=== PATIENT | female | born 1935 | race African-American/Black ===

== ENCOUNTER 2017-02-11 17:28 | Inpatient (IN) | payer MEDICARE, BC ==
[~2017-02-11] VITALS: Ht 167.6 cm; Wt 78.5 kg
[~2017-02-11 17:28] MED LIST: ASPI-1035 PO; ATOR80TA PO; CLON0.1T PO; DOCU-138 PO; ENAL20TA PO; FURO-151 PO; LORA2VIA33 PO; ZOLP5TAB2 PO
[2017-02-11] MEDS ORDERED: LORAZEPAM 1MG TABLET PO ONE (18:15)
[2017-02-11 18:31] LABS: BASOPHILS % 0.9 % (0.0-2.0); EOSINOPHILS % 2.7 % (0.0-5.0); HEMATOCRIT. 29.8 % (36.0-48.0); HEMOGLOBIN. 9.7 g/dL (12.0-16.0); LYMPHOCYTES % 10.7 % (20.0-50.0); MEAN CORPUSCULAR HEMOGLOBIN 27.2 pg (28.0-32.0); MEAN CORPUSCULAR HGB CONC 32.6 g/dL (31.0-37.0); MEAN CORPUSCULAR VOLUME 83.3 fL (81.0-99.0); MEAN PLATELET VOLUME 8.3 fl (7.4-10.4); MONOCYTES % 5.5 % (2.0-8.0); NEUTROPHILS % 80.2 % (40.0-76.0); PLATELET 181 x1000/uL (130-400); RED BLOOD CELL COUNT 3.57 mill/uL (4.2-5.4); RED CELL DISTRIBUTION WIDTH 16.3 % (11.6-14.6); WHITE BLOOD COUNT 8.6 x1000/uL (4.5-11.0)
[2017-02-11 18:35] LABS: CHLORIDE 112 mEq/L (98-107); INDEX HEMOLYSI 1 (1-3); INDEX ICTERIC 1 (1-4); INDEX LIPEMIC 1 (1-3)
[2017-02-11 18:37] LABS: ALBUMIN 3.1 g/dL (3.4-5.0); ANION GAP 14; CALCIUM 8.4 mg/dL (8.5-10.1); CARBON DIOXIDE 22 mEq/L (21-32); INR 1.1; PARTIAL THROMBOPLASTIN TIME 27.8 sec (24.0-34.0); PROTHROMBIN TIME 11.7 sec; UREA NITROGEN BLOOD 30 mg/dL (7-21)
[2017-02-11 18:41] LABS: ALANINE AMINOTRANSFERASE 22 IU/L (13-61); eGFR 41 mL/min (>60)
[2017-02-11 18:44] LABS: NT PRO B-TYPE NATRIURETIC PEP 7071 pg/mL (5-125)
[2017-02-11 18:45] LABS: TROPONIN I < 0.02 ng/mL (0.00-0.04)
[2017-02-11] MEDS ORDERED: FUROSEMIDE 40MG/4ML VIAL IVP ONE (19:30)
[2017-02-11] MEDS ORDERED: ASPIRIN 81MG TABLET PO ONE (19:45)
[2017-02-11] MEDS ORDERED: GUAIFENESIN 200MG/10ML SUGAR FREE UDC PO PRN (20:15)
[2017-02-11] MEDS ORDERED: IPRATROPIUM/ALBUTEROL 0.5-3(2.5)MG/3ML NEB INH PRN (20:15)
[2017-02-11 20:35] LABS: CLARITY URINE CLEAR (CLEAR); COLOR URINE YELLOW (YELLOW); GLUCOSE URINE NEGATIVE (NEGATIVE); KETONES URINE NEGATIVE (NEGATIVE); LEUKOCYTE ESTERASE URINE NEGATIVE (NEGATIVE); NITRITE URINE NEGATIVE (NEGATIVE); OCCULT BLOOD URINE NEGATIVE (NEGATIVE); PROTEIN URINE 2+ (NEGATIVE); SPECIFIC GRAVITY URINE 1.016 (1.005-1.030); UROBILINOGEN URINE 0.2 E.U./dL (0.2-1.0)
[2017-02-11 20:42] LABS: *AMPHETAMINES SCREEN URINE NEGATIVE (NEGATIVE); *BARBITURATES SCREEN URINE NEGATIVE (NEGATIVE); *BENZODIAZEPINES SCREEN URINE NEGATIVE (NEGATIVE); *COCAINE SCREEN URINE NEGATIVE (NEGATIVE); CANNABINOID URINE SCREEN NEGATIVE (NEGATIVE); ECSTASY MDMA SCREEN URINE NEGATIVE (NEGATIVE); METHADONE URINE SCREEN NEGATIVE (NEGATIVE); OPIATES URINE SCREEN NEGATIVE (NEGATIVE); PHENCYCLIDINE URINE SCREEN NEGATIVE (NEGATIVE)
[2017-02-11 20:55] LABS: FOLIC ACID (FOLATE) SERUM 9.5 ng/mL (>5.38)
[2017-02-11 21:04] LABS: BACTERIA URINE TRACE; RBC URINE NONE SEEN /hpf (0-2); SQUAMOUS EPITHELIAL CELL URINE FEW /lpf (RARE/1+); WBC URINE 0-2 /hpf (0-2)
[2017-02-11 21:54] LABS: CREATINE KINASE 101 IU/L (26-192); INDEX HEMOLYSI 1 (1-3); TROPONIN I < 0.02 ng/mL (0.00-0.04)
[2017-02-11] MEDS: SODIUM CHLORIDE 0.9% INJ 3ML FLUSH IVF SCH (22:00)
[2017-02-11] MEDS ORDERED: COR25 PO (22:47)
[2017-02-11] MEDS ORDERED: HYDR100T26 PO (22:47)
[2017-02-11 22:54] VITALS: BP 183/78
[2017-02-11 22:59] VITALS: BP 183/78
[2017-02-11] MEDS: CLONIDINE 0.1MG TABLET PO SCH (23:23)
[2017-02-11] MEDS: HYDRALAZINE HCL 100MG TABLET PO SCH (23:33)
[2017-02-11] MEDS: ZOLPIDEM TARTRATE 5MG TABLET PO PRN (23:33)
[2017-02-11 23:51] VITALS: BP 157/72
[2017-02-12] MEDS: ATORVASTATIN CALCIUM 40MG TABLET PO SCH ×2 (00:03→21:09)
[2017-02-12 04:00] VITALS: BP 138/78
[2017-02-12] MEDS: SODIUM CHLORIDE 0.9% INJ 3ML FLUSH IVF SCH ×3 (05:01→21:09)
[2017-02-12] MEDS: HYDRALAZINE HCL 100MG TABLET PO SCH ×3 (05:51→21:52)
[2017-02-12 06:24] LABS: BASOPHILS % 0.7 % (0.0-2.0); EOSINOPHILS % 3.2 % (0.0-5.0); HEMATOCRIT. 28.7 % (36.0-48.0); HEMOGLOBIN. 9.3 g/dL (12.0-16.0); LYMPHOCYTES % 16.9 % (20.0-50.0); MEAN CORPUSCULAR HEMOGLOBIN 26.8 pg (28.0-32.0); MEAN CORPUSCULAR HGB CONC 32.3 g/dL (31.0-37.0); MEAN PLATELET VOLUME 8.6 fl (7.4-10.4); MONOCYTES % 9.6 % (2.0-8.0); NEUTROPHILS % 69.6 % (40.0-76.0); PLATELET 175 x1000/uL (130-400); RED BLOOD CELL COUNT 3.46 mill/uL (4.2-5.4); RED CELL DISTRIBUTION WIDTH 16.3 % (11.6-14.6); WHITE BLOOD COUNT 7.5 x1000/uL (4.5-11.0)
[2017-02-12 07:11] LABS: ALANINE AMINOTRANSFERASE 15 IU/L (13-61); ALBUMIN 2.8 g/dL (3.4-5.0); ANION GAP 14; CALCIUM 8.1 mg/dL (8.5-10.1); CARBON DIOXIDE 24 mEq/L (21-32); CHLORIDE 109 mEq/L (98-107); CREATINE KINASE 86 IU/L (26-192); HDL CHOLESTEROL 48 mg/dL (40-59); INDEX HEMOLYSI 1 (1-3); INDEX ICTERIC 1 (1-4); INDEX LIPEMIC 1 (1-3); LDL CHOLESTEROL 72 mg/dL (5-100); TRIGLYCERIDE 109 mg/dL (0-150); UREA NITROGEN BLOOD 32 mg/dL (7-21); eGFR 38 mL/min (>60)
[2017-02-12 07:12] LABS: TROPONIN I < 0.02 ng/mL (0.00-0.04)
[2017-02-12 08:00] VITALS: BP 148/79
[2017-02-12] MEDS ORDERED: FUROSEMIDE 40MG/4ML VIAL IV SCH (09:00)
[2017-02-12] MEDS ORDERED: FUROSEMIDE 100MG/10ML VIAL IV SCH (09:00)
[2017-02-12] MEDS ORDERED: ASPIRIN 81MG EC TABLET PO SCH (09:00)
[2017-02-12] MEDS: CLONIDINE 0.1MG TABLET PO SCH ×2 (09:00→21:09)
[2017-02-12] MEDS: DOCUSATE SODIUM 100MG CAPSULE PO SCH (09:00)
[2017-02-12] MEDS: ENOXAPARIN 30MG/0.3ML SYR SUBCUT SCH (09:00)
[2017-02-12] MEDS: CARVEDILOL 25MG TABLET PO SCH ×2 (09:01→16:39)
[2017-02-12 12:00] VITALS: BP 137/86
[2017-02-12] MEDS: ACETAMINOPHEN 325MG TABLET PO PRN ×2 (12:05→21:52)
[2017-02-12 16:32] VITALS: BP 133/68
[2017-02-12] MEDS ORDERED: ZOLPIDEM TARTRATE 5MG TABLET PO PRN (17:00)
[2017-02-12] MEDS: LORAZEPAM 0.5MG TABLET PO PRN (19:03)
[2017-02-12 20:00] VITALS: BP 127/62
[2017-02-12] MEDS ORDERED: ATORVASTATIN CALCIUM 40MG TABLET PO SCH (21:00)
[2017-02-12] MEDS: ZOLPIDEM TARTRATE 5MG TABLET PO PRN (21:14)
[2017-02-12 23:18] LABS: CALCIUM 8.4 mg/dL (8.5-10.1)
[2017-02-13] VITALS (7 sets, daily range): BP systolic 108–162; BP diastolic 46–82
[2017-02-13] MEDS: SODIUM CHLORIDE 0.9% INJ 3ML FLUSH IVF SCH ×3 (05:31→21:43)
[2017-02-13 05:32] LABS: BASOPHILS % 0.6 % (0.0-2.0); EOSINOPHILS % 3.1 % (0.0-5.0); LYMPHOCYTES % 19.3 % (20.0-50.0); MEAN CORPUSCULAR HGB CONC 32.2 g/dL (31.0-37.0); MEAN PLATELET VOLUME 8.9 fl (7.4-10.4); PLATELET 182 x1000/uL (130-400); RED BLOOD CELL COUNT 3.69 mill/uL (4.2-5.4); RED CELL DISTRIBUTION WIDTH 16.5 % (11.6-14.6); WHITE BLOOD COUNT 7.5 x1000/uL (4.5-11.0)
[2017-02-13] MEDS: HYDRALAZINE HCL 100MG TABLET PO SCH ×3 (05:32→21:44)
[2017-02-13 06:07] LABS: CALCIUM 8.4 mg/dL (8.5-10.1)
[2017-02-13] MEDS: ACETAMINOPHEN 325MG TABLET PO PRN ×3 (07:40→21:45)
[2017-02-13] MEDS: DOCUSATE SODIUM 100MG CAPSULE PO SCH (08:15)
[2017-02-13] MEDS: CARVEDILOL 25MG TABLET PO SCH ×2 (08:15→16:14)
[2017-02-13] MEDS: ASPIRIN 81MG TABLET PO SCH (08:15)
[2017-02-13] MEDS: ENOXAPARIN 30MG/0.3ML SYR SUBCUT SCH (08:16)
[2017-02-13] MEDS: CLONIDINE 0.1MG TABLET PO SCH ×2 (08:16→20:23)
[2017-02-13] MEDS: LORAZEPAM 0.5MG TABLET PO PRN ×3 (08:16→20:23)
[2017-02-13 10:22] LABS: T4 FREE 0.96 ng/dL (0.76-1.46); THYROID STIMULATING HORMONE 0.85 uIU/mL (0.36-3.74)
[2017-02-13 16:04] LABS: CREATINE KINASE MB FRACTION 3.2 ng/mL (0.5-3.6); TROPONIN I 0.02 ng/mL (0.00-0.04)
[2017-02-13] MEDS: ATORVASTATIN CALCIUM 40MG TABLET PO SCH (20:24)
[2017-02-13] MEDS: ZOLPIDEM TARTRATE 5MG TABLET PO PRN (21:45)
[2017-02-14] VITALS (8 sets, daily range): BP systolic 120–148; BP diastolic 60–80
[2017-02-14 00:13] LABS: CREATINE KINASE MB FRACTION 2.3 ng/mL (0.5-3.6); TROPONIN I 0.02 ng/mL (0.00-0.04)
[2017-02-14] MEDS: LORAZEPAM 0.5MG TABLET PO PRN ×2 (04:41→17:20)
[2017-02-14] MEDS: SODIUM CHLORIDE 0.9% INJ 3ML FLUSH IVF SCH ×2 (05:43→14:53)
[2017-02-14] MEDS: HYDRALAZINE HCL 100MG TABLET PO SCH ×2 (05:44→14:52)
[2017-02-14] MEDS: ACETAMINOPHEN 325MG TABLET PO PRN ×2 (05:47→14:52)
[2017-02-14 05:52] LABS: BASOPHILS % 0.7 % (0.0-2.0); EOSINOPHILS % 3.7 % (0.0-5.0); HEMATOCRIT. 28.5 % (36.0-48.0); HEMOGLOBIN. 9.1 g/dL (12.0-16.0); LYMPHOCYTES % 19.1 % (20.0-50.0); MEAN CORPUSCULAR HEMOGLOBIN 26.8 pg (28.0-32.0); MEAN CORPUSCULAR VOLUME 83.7 fL (81.0-99.0); MEAN PLATELET VOLUME 8.9 fl (7.4-10.4); MONOCYTES % 9.7 % (2.0-8.0); NEUTROPHILS % 66.8 % (40.0-76.0); PLATELET 164 x1000/uL (130-400); RED BLOOD CELL COUNT 3.41 mill/uL (4.2-5.4); WHITE BLOOD COUNT 7.9 x1000/uL (4.5-11.0)
[2017-02-14 06:38] LABS: ANION GAP 13; CALCIUM 8.2 mg/dL (8.5-10.1); CARBON DIOXIDE 25 mEq/L (21-32); CHLORIDE 107 mEq/L (98-107); INDEX HEMOLYSI 1 (1-3); INDEX ICTERIC 1 (1-4); INDEX LIPEMIC 1 (1-3); UREA NITROGEN BLOOD 45 mg/dL (7-21)
[2017-02-14 06:44] LABS: CREATINE KINASE 101 IU/L (26-192); CREATINE KINASE MB FRACTION 1.9 ng/mL (0.5-3.6); TROPONIN I < 0.02 ng/mL (0.00-0.04); eGFR 33 mL/min (>60)
[2017-02-14] MEDS: DOCUSATE SODIUM 100MG CAPSULE PO SCH (08:27)
[2017-02-14] MEDS: ENOXAPARIN 30MG/0.3ML SYR SUBCUT SCH (08:27)
[2017-02-14] MEDS: ASPIRIN 81MG TABLET PO SCH (08:32)
[2017-02-14] MEDS: CLONIDINE 0.1MG TABLET PO SCH (08:32)
[2017-02-14] MEDS: CARVEDILOL 25MG TABLET PO SCH ×2 (08:32→17:20)
== END 2017-02-14 17:50 | disposition home or self-care (01) | DRG 291 ==
LOC: ER 18:05 → 8WST 19:36
PROVIDERS: ADMIT Family Medicine; ATTEND Family Medicine
DX: I13.0 Hypertensive heart and chronic kidney disease with heart failure and stage 1 through stage 4 chronic kidney disease, or unspecified chronic kidney disease (principal); I50.33 Acute on chronic diastolic (congestive) heart failure; E44.1 Mild protein-calorie malnutrition; K21.9 Gastro-esophageal reflux disease without esophagitis; D64.9 Anemia, unspecified; R07.9 Chest pain, unspecified; E78.5 Hyperlipidemia, unspecified; F03.90 Unspecified dementia, unspecified severity, without behavioral disturbance, psychotic disturbance, mood disturbance, and anxiety; I25.10 Atherosclerotic heart disease of native coronary artery without angina pectoris; I50.9 Heart failure, unspecified; J44.9 Chronic obstructive pulmonary disease, unspecified; F41.9 Anxiety disorder, unspecified; M25.512 Pain in left shoulder; N18.9 Chronic kidney disease, unspecified; G89.29 Other chronic pain; Z82.49 Family history of ischemic heart disease and other diseases of the circulatory system; Z95.810 Presence of automatic (implantable) cardiac defibrillator; Z90.710 Acquired absence of both cervix and uterus; Z88.8 Allergy status to other drugs, medicaments and biological substances; I25.2 Old myocardial infarction; Z79.899 Other long term (current) drug therapy; Z79.82 Long term (current) use of aspirin; Z68.27 Body mass index [BMI] 27.0-27.9, adult
CPT/HCPCS: 36415; 71010; 76770; 80048; 80053; 80061; 80305; 81001; 82550; 82553; 82607; 82746; 83036; 83540; 83550; 83880; 84439; 84443; 84484; 85025; 85379; 85610; 85730; 93005; 93306; 93970; 96374; 97162; 97166; 99285; C1893; J1650; J1940

== ENCOUNTER 2017-08-12 22:20 | Inpatient (IN) | payer MEDICARE, BC ==
[~2017-08-12] VITALS: Ht 167.6 cm; Wt 73.5 kg
[~2017-08-12 22:20] MED LIST changes: +AMLO10TA80 PO; -ASPI-1035 PO; +ASPI-1159 PO; +COR25 PO; -ENAL20TA PO; -FURO-151 PO; +HYDR100T26 PO; +NIFE30TA83 PO
[2017-08-12] MEDS ORDERED: LORAZEPAM 1MG TABLET PO ONE (22:45)
[2017-08-12] MEDS ORDERED: ASPIRIN 81MG TABLET PO ONE (22:45)
[2017-08-12 23:40] LABS: BASOPHILS % 0.7 % (0.0-2.0); EOSINOPHILS % 1.2 % (0.0-5.0); HEMOGLOBIN. 11.4 g/dL (12.0-16.0); LYMPHOCYTES % 7.8 % (20.0-50.0); MEAN CORPUSCULAR HEMOGLOBIN 24.6 pg (28.0-32.0); MEAN CORPUSCULAR VOLUME 77.7 fL (81.0-99.0); MEAN PLATELET VOLUME 8.4 fl (7.4-10.4); MONOCYTES % 5.8 % (2.0-8.0); NEUTROPHILS % 84.5 % (40.0-76.0); PLATELET 210 x1000/uL (130-400); RED BLOOD CELL COUNT 4.63 mill/uL (4.2-5.4); RED CELL DISTRIBUTION WIDTH 16.7 % (11.6-14.6)
[2017-08-12 23:46] LABS: INR 1.1; PROTHROMBIN TIME 11.4 sec (9.4-11.6)
[2017-08-12 23:54] LABS: CARBON DIOXIDE 24 mEq/L (21-32); CHLORIDE 104 mEq/L (98-107); ETHANOL BLOOD < 10 mg/dL; TROPONIN I 0.03 ng/mL (0.00-0.04)
[2017-08-13 00:17] LABS: *AMPHETAMINES SCREEN URINE NEGATIVE (NEGATIVE); *BARBITURATES SCREEN URINE NEGATIVE (NEGATIVE); *BENZODIAZEPINES SCREEN URINE NEGATIVE (NEGATIVE); *COCAINE SCREEN URINE NEGATIVE (NEGATIVE); CANNABINOID URINE SCREEN NEGATIVE (NEGATIVE); METHADONE URINE SCREEN NEGATIVE (NEGATIVE); OPIATES URINE SCREEN PRESUMTIVE POSITIVE (NEGATIVE); PHENCYCLIDINE URINE SCREEN NEGATIVE (NEGATIVE)
[2017-08-13 04:55] VITALS: BP 162/70
[2017-08-13] MEDS ORDERED: POTASSIUM CHLORIDE 20MEQ TABLET SR PO NR (06:00)
[2017-08-13] MEDS ORDERED: LORAZEPAM 0.5MG TABLET PO PRN (06:00)
[2017-08-13] MEDS ORDERED: IPRATROPIUM/ALBUTEROL 0.5-3(2.5)MG/3ML NEB HHN PRN (06:00)
[2017-08-13] MEDS ORDERED: DIFL5DRO LEFTEYE (06:09)
[2017-08-13] MEDS ORDERED: CLONIDINE 0.1MG TABLET PO PRN (06:15)
[2017-08-13] MEDS: HYDRALAZINE HCL 100MG TABLET PO SCH ×3 (06:50→23:25)
[2017-08-13 07:58] VITALS: BP 126/69
[2017-08-13] MEDS ORDERED: AMLODIPINE 10MG TABLET PO SCH (09:00)
[2017-08-13] MEDS: CARVEDILOL 25MG TABLET PO SCH ×2 (09:10→18:40)
[2017-08-13] MEDS: DOCUSATE SODIUM 100MG CAPSULE PO SCH (09:10)
[2017-08-13] MEDS: ASPIRIN 81MG EC TABLET PO SCH (09:10)
[2017-08-13 12:00] VITALS: BP 124/69
[2017-08-13] MEDS ORDERED: MEDICATION NOT ON FORMULARY EA (Difluprednate (Durezol) 1 DROP) LEFTEYE SCH (12:15)
[2017-08-13] MEDS ORDERED: ATIVAN PO (12:26)
[2017-08-13] MEDS ORDERED: ATIVAN PO PRN (12:30)
[2017-08-13] MEDS ORDERED: NIFEDIPINE XL 30MG TAB PO SCH (13:00)
[2017-08-13 16:00] VITALS: BP 120/61
[2017-08-13 18:04] LABS: CREATINE KINASE MB FRACTION 1.8 ng/mL (0.5-3.6); T4 FREE 1.16 ng/dL (0.76-1.46); TROPONIN I 0.03 ng/mL (0.00-0.04)
[2017-08-13] MEDS: ACETAMINOPHEN 325MG TABLET PO PRN (19:57)
[2017-08-13 20:00] VITALS: BP 116/53
[2017-08-13] MEDS: LORAZEPAM 1MG TABLET PO PRN (20:01)
[2017-08-13] MEDS ORDERED: MEDICATION NOT ON FORMULARY EA (Atorvastatin Calcium (Lipitor) 80 MG) PO SCH (21:00)
[2017-08-13] MEDS: ATORVASTATIN CALCIUM 40MG TABLET PO SCH (23:25)
[2017-08-14] VITALS: BP 119/62
[2017-08-14 04:00] VITALS: BP 110/60
[2017-08-14] MEDS: HYDRALAZINE HCL 100MG TABLET PO SCH ×3 (06:00→21:35)
[2017-08-14] MEDS: LORAZEPAM 1MG TABLET PO PRN ×2 (06:59→21:34)
[2017-08-14] MEDS: ACETAMINOPHEN 325MG TABLET PO PRN (07:00)
[2017-08-14 08:00] VITALS: BP 125/51
[2017-08-14] MEDS: ASPIRIN 81MG EC TABLET PO SCH (08:43)
[2017-08-14] MEDS: CARVEDILOL 25MG TABLET PO SCH ×2 (08:43→17:23)
[2017-08-14] MEDS: ENOXAPARIN 80MG/0.8ML SYR SUBCUT SCH ×2 (08:43→21:35)
[2017-08-14] MEDS: DOCUSATE SODIUM 100MG CAPSULE PO SCH (08:43)
[2017-08-14 12:00] VITALS: BP 104/48
[2017-08-14 16:00] VITALS: BP 134/58
[2017-08-14] MEDS ORDERED: WARFARIN SODIUM 5MG TABLET PO SCH (18:00)
[2017-08-14 20:00] VITALS: BP 105/48
[2017-08-14] MEDS ORDERED: LACTULOSE 20G/30ML UDC PO PRN (20:00)
[2017-08-14] MEDS: ATORVASTATIN CALCIUM 40MG TABLET PO SCH (21:34)
[2017-08-14] MEDS ORDERED: DIPHENHYDRAMINE 50MG/ML VIAL IV PRN (22:45)
[2017-08-14] MEDS ORDERED: PREDNISONE 20MG TABLET PO SCH (23:00)
[2017-08-14 23:16] LABS: BASOPHILS % 0.5 % (0.0-2.0); EOSINOPHILS % 2.3 % (0.0-5.0); HEMOGLOBIN. 9.8 g/dL (12.0-16.0); LYMPHOCYTES % 12.4 % (20.0-50.0); MEAN CORPUSCULAR HEMOGLOBIN 24.8 pg (28.0-32.0); MEAN CORPUSCULAR VOLUME 77.9 fL (81.0-99.0); MEAN PLATELET VOLUME 8.5 fl (7.4-10.4); NEUTROPHILS % 72.8 % (40.0-76.0); PLATELET 175 x1000/uL (130-400); RED BLOOD CELL COUNT 3.97 mill/uL (4.2-5.4); RED CELL DISTRIBUTION WIDTH 16.6 % (11.6-14.6)
[2017-08-14 23:24] LABS: INR 1.1; PROTHROMBIN TIME 11.4 sec (9.4-11.6)
[2017-08-14 23:37] LABS: CARBON DIOXIDE 26 mEq/L (21-32); CHLORIDE 109 mEq/L (98-107)
[2017-08-15] VITALS: BP 156/48
[2017-08-15 04:00] VITALS: BP 133/56
[2017-08-15] MEDS: HYDRALAZINE HCL 100MG TABLET PO SCH ×4 (05:57→21:37)
[2017-08-15] MEDS: PREDNISONE 20MG TABLET PO SCH ×2 (05:58→11:00)
[2017-08-15 06:33] LABS: HEMATOCRIT. 31.1 % (36.0-48.0); MEAN CORPUSCULAR HEMOGLOBIN 24.9 pg (28.0-32.0); MEAN CORPUSCULAR VOLUME 77.3 fL (81.0-99.0); MEAN PLATELET VOLUME 8.8 fl (7.4-10.4); PLATELET 180 x1000/uL (130-400); RED BLOOD CELL COUNT 4.03 mill/uL (4.2-5.4); RED CELL DISTRIBUTION WIDTH 16.9 % (11.6-14.6)
[2017-08-15 06:39] LABS: INR 1.1; PROTHROMBIN TIME 11.4 sec (9.4-11.6)
[2017-08-15] MEDS ORDERED: CEFAZOLIN 1000MG PREMIX 0 ML IV ONE (07:35)
[2017-08-15] MEDS ORDERED: HEPARIN 1000 UNITS/ML 10ML ONE (07:36)
[2017-08-15] MEDS ORDERED: LIDOCAINE HCL 1% 20ML VIAL (Pyxis) INJ ONE (07:36)
[2017-08-15] MEDS ORDERED: SODIUM BICARBONATE 4% (2.4MEQ) 5ML VIAL IV ONE (07:36)
[2017-08-15 08:00] VITALS: BP 137/62
[2017-08-15] MEDS: DOCUSATE SODIUM 100MG CAPSULE PO SCH (09:00)
[2017-08-15] MEDS: CARVEDILOL 25MG TABLET PO SCH ×2 (09:34→17:19)
[2017-08-15] MEDS: LORAZEPAM 1MG TABLET PO PRN ×2 (09:35→21:37)
[2017-08-15] MEDS: ASPIRIN 81MG EC TABLET PO SCH (09:35)
[2017-08-15] MEDS: ENOXAPARIN 80MG/0.8ML SYR SUBCUT SCH (09:35)
[2017-08-15 12:00] VITALS: BP 141/58
[2017-08-15] MEDS ORDERED: ENOXAPARIN 30MG/0.3ML SYR SUBCUT SCH (12:00)
[2017-08-15 16:00] VITALS: BP 136/60
[2017-08-15 16:29] LABS: PLATELET ESTIMATE NORMAL
[2017-08-15] MEDS: ACETAMINOPHEN 325MG TABLET PO PRN (17:19)
[2017-08-15] MEDS: SODIUM CHLORIDE 0.45% 1,000 ML IV SCH (17:49)
[2017-08-15 20:00] VITALS: BP 149/65
[2017-08-15] MEDS: ATORVASTATIN CALCIUM 40MG TABLET PO SCH (21:36)
[2017-08-15] MEDS ORDERED: PREDNISONE 20MG TABLET PO SCH (23:00)
[2017-08-15] MEDS: TRAMADOL 50MG TABLET PO PRN (23:19)
[2017-08-16] VITALS: BP 131/57
[2017-08-16 03:26] LABS: CLARITY URINE CLEAR (CLEAR); COLOR URINE YELLOW (YELLOW); GLUCOSE URINE NEGATIVE (NEGATIVE); KETONES URINE NEGATIVE (NEGATIVE); LEUKOCYTE ESTERASE URINE NEGATIVE (NEGATIVE); NITRITE URINE NEGATIVE (NEGATIVE); OCCULT BLOOD URINE NEGATIVE (NEGATIVE); PROTEIN URINE 2+ (NEGATIVE); SPECIFIC GRAVITY URINE 1.017 (1.005-1.030); UROBILINOGEN URINE 0.2 E.U./dL (0.2-1.0)
[2017-08-16 04:00] VITALS: BP 135/57
[2017-08-16] MEDS: HYDRALAZINE HCL 100MG TABLET PO SCH ×2 (06:08→13:29)
[2017-08-16 07:51] VITALS: BP 127/45
[2017-08-16] MEDS: SODIUM CHLORIDE 0.45% 1,000 ML IV SCH (09:00)
[2017-08-16] MEDS: DOCUSATE SODIUM 100MG CAPSULE PO SCH (09:00)
[2017-08-16] MEDS: CARVEDILOL 25MG TABLET PO SCH ×2 (09:00→17:08)
[2017-08-16] MEDS ORDERED: ENOXAPARIN 30MG/0.3ML SYR SUBCUT SCH (09:00)
[2017-08-16] MEDS: ASPIRIN 81MG EC TABLET PO SCH (09:01)
[2017-08-16] MEDS: TRAMADOL 50MG TABLET PO PRN (10:17)
[2017-08-16] MEDS: LORAZEPAM 1MG TABLET PO PRN (11:41)
[2017-08-16 12:00] VITALS: BP 157/53
[2017-08-16 16:00] VITALS: BP 177/78
[2017-08-16 16:52] LABS: CHLORIDE 107 mEq/L (98-107)
[2017-08-16 16:57] LABS: CARBON DIOXIDE 27 mEq/L (21-32)
[2017-08-16 17:05] LABS: BASOPHILS % 0.2 % (0.0-2.0); EOSINOPHILS % 0.5 % (0.0-5.0); HEMATOCRIT. 28.9 % (36.0-48.0); HEMOGLOBIN. 9.1 g/dL (12.0-16.0); LYMPHOCYTES % 9.1 % (20.0-50.0); MEAN CORPUSCULAR HEMOGLOBIN 24.3 pg (28.0-32.0); MEAN CORPUSCULAR VOLUME 77.3 fL (81.0-99.0); MEAN PLATELET VOLUME 8.5 fl (7.4-10.4); MONOCYTES % 9.3 % (2.0-8.0); NEUTROPHILS % 80.9 % (40.0-76.0); PLATELET 199 x1000/uL (130-400); RED BLOOD CELL COUNT 3.74 mill/uL (4.2-5.4); RED CELL DISTRIBUTION WIDTH 17.1 % (11.6-14.6)
[2017-08-16 18:14] VITALS: BP 157/78
== END 2017-08-16 19:00 | disposition home or self-care (01) | DRG 291 ==
LOC: ER 22:37 → ENRESERV 08-13 04:15 → 6WST 08-13 04:44
PROVIDERS: ADMIT Family Medicine; ATTEND Family Medicine
DX: I11.0 Hypertensive heart disease with heart failure (principal); N17.0 Acute kidney failure with tubular necrosis; K21.9 Gastro-esophageal reflux disease without esophagitis; I50.33 Acute on chronic diastolic (congestive) heart failure; G62.9 Polyneuropathy, unspecified; J44.9 Chronic obstructive pulmonary disease, unspecified; I16.0 Hypertensive urgency; I35.1 Nonrheumatic aortic (valve) insufficiency; E78.5 Hyperlipidemia, unspecified; F41.9 Anxiety disorder, unspecified; M19.90 Unspecified osteoarthritis, unspecified site; H53.8 Other visual disturbances; Z86.718 Personal history of other venous thrombosis and embolism; Z88.9 Allergy status to unspecified drugs, medicaments and biological substances; Z95.810 Presence of automatic (implantable) cardiac defibrillator; Z79.899 Other long term (current) drug therapy; Z88.8 Allergy status to other drugs, medicaments and biological substances; Z81.8 Family history of other mental and behavioral disorders; Z79.82 Long term (current) use of aspirin
CPT/HCPCS: 36415; 70450; 71010; 76770; 78582; 80048; 80053; 80061; 80305; 81001; 82550; 82553; 83036; 83690; 83880; 84439; 84443; 84484; 85025; 85379; 85610; 87086; 93005; 93306; 93970; 97116; 97162; 97530; 99291; A9558; G0482; J0690; J1644; J1650; J3490; J7512

== ENCOUNTER 2017-11-07 13:18 | Emergency (ER) | payer MEDICARE, BC ==
[~2017-11-07] VITALS: Ht 162.6 cm; Wt 64.0 kg
[~2017-11-07 13:18] MED LIST changes: +ATIVAN PO; +DIFL5DRO LEFTEYE; -LORA2VIA33 PO
[2017-11-07] MEDS ORDERED: SODIUM CHLORIDE 0.9% 1,000 ML IV ONE (15:37)
[2017-11-07 16:50] LABS: CHLORIDE 109 mEq/L (98-107); INR 1.1; PROTHROMBIN TIME 11.4 sec (9.4-11.6)
[2017-11-07 16:51] LABS: BASOPHILS % 0.7 % (0.0-2.0); EOSINOPHILS % 1.4 % (0.0-5.0); HEMATOCRIT. 34.2 % (36.0-48.0); HEMOGLOBIN. 10.6 g/dL (12.0-16.0); LYMPHOCYTES % 9.2 % (20.0-50.0); MEAN CORPUSCULAR HEMOGLOBIN 25.7 pg (28.0-32.0); MEAN CORPUSCULAR VOLUME 83.1 fL (81.0-99.0); MEAN PLATELET VOLUME 7.6 fl (7.4-10.4); MONOCYTES % 4.9 % (2.0-8.0); NEUTROPHILS % 83.8 % (40.0-76.0); PLATELET 208 x1000/uL (130-400); RED BLOOD CELL COUNT 4.12 mill/uL (4.2-5.4); RED CELL DISTRIBUTION WIDTH 16.1 % (11.6-14.6)
[2017-11-07 16:58] LABS: CARBON DIOXIDE 25 mEq/L (21-32)
[2017-11-07 19:21] LABS: CLARITY URINE CLEAR (CLEAR); COLOR URINE YELLOW (YELLOW); KETONES URINE NEGATIVE (NEGATIVE); LEUKOCYTE ESTERASE URINE NEGATIVE (NEGATIVE); NITRITE URINE NEGATIVE (NEGATIVE); OCCULT BLOOD URINE NEGATIVE (NEGATIVE); PROTEIN URINE 2+ (NEGATIVE); SPECIFIC GRAVITY URINE 1.012 (1.005-1.030); UROBILINOGEN URINE 0.2 E.U./dL (0.2-1.0)
[2017-11-07] MEDS ORDERED: ACETAMINOPHEN 325MG TABLET PO ONE (20:30)
[2017-11-07 21:23] VITALS: BP 159/75
== END 2017-11-07 22:12 | disposition home or self-care (01) ==
LOC: ER 13:39
DX: R35.0 Frequency of micturition (principal); R10.84 Generalized abdominal pain; I25.10 Atherosclerotic heart disease of native coronary artery without angina pectoris; I11.0 Hypertensive heart disease with heart failure; J44.9 Chronic obstructive pulmonary disease, unspecified; D64.9 Anemia, unspecified; K80.20 Calculus of gallbladder without cholecystitis without obstruction; M19.90 Unspecified osteoarthritis, unspecified site; K57.30 Diverticulosis of large intestine without perforation or abscess without bleeding; Z95.0 Presence of cardiac pacemaker; Z88.5 Allergy status to narcotic agent; Z79.82 Long term (current) use of aspirin; Z88.6 Allergy status to analgesic agent; Z91.041 Radiographic dye allergy status
CPT/HCPCS: 36415; 71010; 74176; 80053; 81001; 83690; 85025; 85610; 96360; 96361; 99285; J7030

== ENCOUNTER 2018-01-04 15:52 | Emergency (ER) | payer MEDICARE, BC ==
[~2018-01-04] VITALS: Ht 162.6 cm; Wt 85.0 kg
[2018-01-04 17:08] LABS: HEMATOCRIT. 29.2 % (36.0-48.0); HEMOGLOBIN. 9.2 g/dL (12.0-16.0); MEAN CORPUSCULAR HEMOGLOBIN 25.4 pg (28.0-32.0); MEAN CORPUSCULAR VOLUME 80.5 fL (81.0-99.0); MEAN PLATELET VOLUME 7.5 fl (7.4-10.4); PLATELET 246 x1000/uL (130-400); RED BLOOD CELL COUNT 3.63 mill/uL (4.2-5.4); RED CELL DISTRIBUTION WIDTH 13.6 % (11.6-14.6)
[2018-01-04 17:12] LABS: INR 1.1
[2018-01-04 17:18] LABS: CHLORIDE 105 mEq/L (98-107)
[2018-01-04 17:32] LABS: PLATELET ESTIMATE NORMAL
[2018-01-04 19:05] LABS: CLARITY URINE CLEAR (CLEAR); COLOR URINE YELLOW (YELLOW); KETONES URINE NEGATIVE (NEGATIVE); LEUKOCYTE ESTERASE URINE TRACE (NEGATIVE); NITRITE URINE NEGATIVE (NEGATIVE); OCCULT BLOOD URINE NEGATIVE (NEGATIVE); PROTEIN URINE 2+ (NEGATIVE); SPECIFIC GRAVITY URINE 1.014 (1.005-1.030); UROBILINOGEN URINE 0.2 E.U./dL (0.2-1.0)
[2018-01-04] MEDS ORDERED: SODIUM CHLORIDE 0.9% 500 ML IV ONE (21:00)
[2018-01-04] MEDS ORDERED: ONDANSETRON HCL 4MG/2ML VIAL IV ONE (21:00)
[2018-01-04] MEDS ORDERED: NA PHOS,M-B/NA PHOS,DI-BA ENEMA 118ML PR ONE (21:45)
[2018-01-04] MEDS ORDERED: MINERAL OIL ENEMA 133ML PR ONE (21:45)
[2018-01-04] MEDS ORDERED: CEFTRIAXONE 1 G PREMIX 50 ML IV ONE (22:00)
[2018-01-04 23:07] VITALS: BP 120/55
== END 2018-01-04 23:07 | disposition home or self-care (01) ==
LOC: ER 16:14
DX: N39.0 Urinary tract infection, site not specified (principal); K59.00 Constipation, unspecified; I13.0 Hypertensive heart and chronic kidney disease with heart failure and stage 1 through stage 4 chronic kidney disease, or unspecified chronic kidney disease; I25.10 Atherosclerotic heart disease of native coronary artery without angina pectoris; N18.9 Chronic kidney disease, unspecified; I50.9 Heart failure, unspecified; E78.5 Hyperlipidemia, unspecified; J44.9 Chronic obstructive pulmonary disease, unspecified; D72.829 Elevated white blood cell count, unspecified; D64.9 Anemia, unspecified; N28.1 Cyst of kidney, acquired; K86.89 Other specified diseases of pancreas; K57.90 Diverticulosis of intestine, part unspecified, without perforation or abscess without bleeding; Z79.82 Long term (current) use of aspirin; Z88.5 Allergy status to narcotic agent; Z95.0 Presence of cardiac pacemaker; Z95.810 Presence of automatic (implantable) cardiac defibrillator
CPT/HCPCS: 36415; 71045; 74176; 80053; 81001; 83605; 83690; 85025; 85610; 87040; 87077; 87086; 87186; 87804; 93005; 96361; 96365; 96375; 99285; J0696; J2405; J7040

== ENCOUNTER 2018-11-25 12:55 | Inpatient (IN) | payer MEDICARE, BC ==
[~2018-11-25] VITALS: Ht 167.6 cm; Wt 60.3 kg
[2018-11-25] MEDS ORDERED: LORAZEPAM 1MG TABLET PO ONE ×2 (16:00→18:45)
[2018-11-25] MEDS ORDERED: TRAMADOL 50MG TABLET PO ONE (16:00)
[2018-11-25 16:17] LABS: EOSINOPHILS % 2.4 % (0.0-5.0); HEMATOCRIT. 28.9 % (36.0-48.0); HEMOGLOBIN. 9.3 g/dL (12.0-16.0); LYMPHOCYTES % 12.4 % (20.0-50.0); MEAN CORPUSCULAR HEMOGLOBIN 28.1 pg (28.0-32.0); MEAN CORPUSCULAR VOLUME 86.7 fL (81.0-99.0); MEAN PLATELET VOLUME 8.2 fl (7.4-10.4); MONOCYTES % 7.9 % (2.0-8.0); NEUTROPHILS % 76.3 % (40.0-76.0); PLATELET 114 x1000/uL (130-400); RED BLOOD CELL COUNT 3.33 mill/uL (4.2-5.4); RED CELL DISTRIBUTION WIDTH 14.5 % (11.6-14.6)
[2018-11-25 16:25] LABS: CHLORIDE 110 mEq/L (98-107)
[2018-11-25 16:26] LABS: INR 1.1; PARTIAL THROMBOPLASTIN TIME 20.9 sec (23.4-31.0); PROTHROMBIN TIME 10.7 sec (9.1-11.1)
[2018-11-25] MEDS ORDERED: ASPIRIN 325MG EC TABLET PO ONE (17:15)
[2018-11-25] MEDS ORDERED: FUROSEMIDE 40MG/4ML VIAL IVP ONE (17:15)
[2018-11-25 20:44] LABS: CLARITY URINE CLEAR (CLEAR); COLOR URINE YELLOW (YELLOW); KETONES URINE NEGATIVE (NEGATIVE); LEUKOCYTE ESTERASE URINE NEGATIVE (NEGATIVE); NITRITE URINE NEGATIVE (NEGATIVE); OCCULT BLOOD URINE 1+ (NEGATIVE); PH URINE 7.5 (4.5-8.0); PROTEIN URINE 1+ (NEGATIVE); SPECIFIC GRAVITY URINE 1.006 (1.005-1.030); UROBILINOGEN URINE 0.2 E.U./dL (0.2-1.0)
[2018-11-25] MEDS ORDERED: LORAZEPAM 1MG TABLET PO SCH (23:30)
[2018-11-26] MEDS ORDERED: IPRATROPIUM BROMIDE (0.02%) 0.5MG/2.5ML NEB HHN PRN (02:00)
[2018-11-26 08:25] VITALS: BP 182/93
[2018-11-26 09:00] VITALS: BP 182/93
[2018-11-26] MEDS ORDERED: FUROSEMIDE 40MG/4ML VIAL IVP SCH (11:45)
[2018-11-26] MEDS: LORAZEPAM 2MG/ML CPJ IV PRN ×2 (11:57→18:00)
[2018-11-26 12:00] VITALS: BP 179/95
[2018-11-26] MEDS ORDERED: HYDROMORPHONE HCL/PF 2MG/ML CPJ IV PRN (12:00)
[2018-11-26] MEDS ORDERED: AMLODIPINE 5MG TABLET PO NR (12:00)
[2018-11-26] MEDS ORDERED: MAGNESIUM/ALUMINUM HYDROXIDE/SIMETHICONE 30ML UDC PO PRN (12:00)
[2018-11-26] MEDS ORDERED: CLONIDINE 0.1MG TABLET PO PRN (12:00)
[2018-11-26] MEDS ORDERED: ACETAMINOPHEN 650MG SUPP PR PRN (12:00)
[2018-11-26] MEDS ORDERED: ENOXAPARIN 40MG/0.4ML SYR SUBCUT SCH (13:00)
[2018-11-26] MEDS ORDERED: LEVOFLOXACIN 500MG PREMIX 100 ML IV SCH (14:00)
[2018-11-26 15:44] LABS: CHLORIDE 104 mEq/L (98-107)
[2018-11-26 15:54] LABS: CREATINE KINASE 52 IU/L (26-192)
[2018-11-26 15:56] LABS: CREATINE KINASE MB FRACTION 1.1 ng/mL (0.5-3.6)
[2018-11-26 16:00] VITALS: BP 152/75
[2018-11-26] MEDS: POTASSIUM CHLORIDE 20MEQ TABLET SR PO SCH (16:35)
[2018-11-26] MEDS: ONDANSETRON HCL 4MG/2ML INJ IV PRN (16:35)
[2018-11-26] MEDS: TRAMADOL 50MG TABLET PO PRN ×2 (16:36→22:39)
[2018-11-26 20:00] VITALS: BP 145/72
[2018-11-26] MEDS: METHYLPREDNISOLONE SOD SUCC 40 MG/ML VIAL IV SCH (20:00)
[2018-11-26 20:11] LABS: *AMPHETAMINES SCREEN URINE NEGATIVE (NEGATIVE); OPIATES URINE SCREEN NEGATIVE (NEGATIVE); PHENCYCLIDINE URINE SCREEN NEGATIVE (NEGATIVE)
[2018-11-26 20:12] LABS: *BARBITURATES SCREEN URINE NEGATIVE (NEGATIVE); *COCAINE SCREEN URINE NEGATIVE (NEGATIVE); CANNABINOID URINE SCREEN NEGATIVE (NEGATIVE)
[2018-11-26 20:14] LABS: *BENZODIAZEPINES SCREEN URINE NEGATIVE (NEGATIVE); METHADONE URINE SCREEN NEGATIVE (NEGATIVE)
[2018-11-26] MEDS ORDERED: AMLODIPINE 5MG TABLET PO SCH (21:00)
[2018-11-26] MEDS: AMLODIPINE 5MG TABLET PO SCH (21:03)
[2018-11-26] MEDS ORDERED: CLONIDINE 0.1MG TABLET PO SCH (23:00)
[2018-11-27] VITALS (7 sets, daily range): BP systolic 114–162; BP diastolic 69–83
[2018-11-27] MEDS: LORAZEPAM 2MG/ML CPJ IV PRN ×4 (00:03→17:31)
[2018-11-27] MEDS: METHYLPREDNISOLONE SOD SUCC 40 MG/ML VIAL IV SCH ×4 (03:16→20:34)
[2018-11-27 06:43] LABS: HEMATOCRIT. 26.8 % (36.0-48.0); HEMOGLOBIN. 8.9 g/dL (12.0-16.0); MEAN CORPUSCULAR HEMOGLOBIN 28.3 pg (28.0-32.0); MEAN CORPUSCULAR VOLUME 85.1 fL (81.0-99.0); MEAN PLATELET VOLUME 8.1 fl (7.4-10.4); PLATELET 120 x1000/uL (130-400); RED BLOOD CELL COUNT 3.15 mill/uL (4.2-5.4); RED CELL DISTRIBUTION WIDTH 14.2 % (11.6-14.6)
[2018-11-27 07:11] LABS: PHOSPHORUS 3.8 mg/dL (2.5-4.9)
[2018-11-27] MEDS: FUROSEMIDE 40MG/4ML VIAL IVP SCH ×2 (08:05→17:31)
[2018-11-27] MEDS: POTASSIUM CHLORIDE 20MEQ TABLET SR PO SCH (08:05)
[2018-11-27] MEDS: CARVEDILOL 25MG TABLET PO SCH ×2 (08:10→20:35)
[2018-11-27] MEDS: ONDANSETRON HCL 4MG/2ML INJ IV PRN ×2 (08:10→15:31)
[2018-11-27] MEDS: AMLODIPINE 5MG TABLET PO SCH ×2 (08:10→20:36)
[2018-11-27] MEDS ORDERED: AMLODIPINE 10MG TABLET PO SCH (09:00)
[2018-11-27] MEDS: ENOXAPARIN 40MG/0.4ML SYR SUBCUT SCH (09:00)
[2018-11-27] MEDS: HYDROCODONE/ACETAMINOPHEN 5/325MG TABLET PO PRN (10:05)
[2018-11-27 14:10] LABS: PLATELET ESTIMATE SLIGHTLY DECREASED
[2018-11-27] MEDS: LEVOFLOXACIN 250MG PREMIX 50 ML IV SCH (14:27)
[2018-11-27] MEDS: DOCUSATE SODIUM 100MG CAPSULE PO PRN (15:31)
[2018-11-27] MEDS: TRAMADOL 50MG TABLET PO PRN (20:46)
[2018-11-28] VITALS: BP 120/55
[2018-11-28] MEDS: LORAZEPAM 2MG/ML CPJ IV PRN ×4 (00:40→20:25)
[2018-11-28] MEDS: METHYLPREDNISOLONE SOD SUCC 40 MG/ML VIAL IV SCH ×4 (02:23→20:25)
[2018-11-28 04:00] VITALS: BP 142/68
[2018-11-28] MEDS: TRAMADOL 50MG TABLET PO PRN ×2 (04:41→12:43)
[2018-11-28 08:00] VITALS: BP 121/70
[2018-11-28] MEDS: POTASSIUM CHLORIDE 20MEQ TABLET SR PO SCH (08:42)
[2018-11-28] MEDS: AMLODIPINE 5MG TABLET PO SCH ×2 (08:43→20:25)
[2018-11-28] MEDS: FUROSEMIDE 40MG/4ML VIAL IVP SCH (08:43)
[2018-11-28] MEDS: CARVEDILOL 25MG TABLET PO SCH ×2 (08:43→20:25)
[2018-11-28] MEDS: ENOXAPARIN 40MG/0.4ML SYR SUBCUT SCH (08:50)
[2018-11-28 09:16] LABS: HEMATOCRIT. 26.8 % (36.0-48.0); HEMOGLOBIN. 8.7 g/dL (12.0-16.0); MEAN CORPUSCULAR HEMOGLOBIN 27.8 pg (28.0-32.0); MEAN CORPUSCULAR VOLUME 85.9 fL (81.0-99.0); RED BLOOD CELL COUNT 3.13 mill/uL (4.2-5.4); RED CELL DISTRIBUTION WIDTH 14.7 % (11.6-14.6)
[2018-11-28 09:17] LABS: PLATELET 125 x1000/uL (130-400)
[2018-11-28 12:00] VITALS: BP 134/55
[2018-11-28 12:31] LABS: PLATELET ESTIMATE SLIGHTLY DECREASED
[2018-11-28] MEDS: LEVOFLOXACIN 250MG PREMIX 50 ML IV SCH (14:12)
[2018-11-28 16:00] VITALS: BP 150/65
[2018-11-28 20:41] VITALS: BP 146/68
[2018-11-29] VITALS: BP 159/68
[2018-11-29] MEDS: METHYLPREDNISOLONE SOD SUCC 40 MG/ML VIAL IV SCH ×4 (01:24→20:35)
[2018-11-29] MEDS: LORAZEPAM 2MG/ML CPJ IV PRN ×4 (01:25→20:46)
[2018-11-29 04:00] VITALS: BP 144/70
[2018-11-29] MEDS: ONDANSETRON HCL 4MG/2ML INJ IV PRN (07:05)
[2018-11-29 08:00] VITALS: BP 147/71
[2018-11-29] MEDS: CARVEDILOL 25MG TABLET PO SCH ×2 (08:39→20:36)
[2018-11-29] MEDS: AMLODIPINE 5MG TABLET PO SCH ×2 (08:39→20:36)
[2018-11-29] MEDS: ENOXAPARIN 30MG/0.3ML SYR SUBCUT SCH (08:41)
[2018-11-29] MEDS: TRAMADOL 50MG TABLET PO PRN (08:41)
[2018-11-29] MEDS ORDERED: FUROSEMIDE 40MG/4ML VIAL IVP SCH (09:00)
[2018-11-29 12:00] VITALS: BP 140/66
[2018-11-29] MEDS: HYDROCODONE/ACETAMINOPHEN 5/325MG TABLET PO PRN (13:04)
[2018-11-29] MEDS: DOCUSATE SODIUM 100MG CAPSULE PO PRN (13:11)
[2018-11-29] MEDS: LEVOFLOXACIN 250MG TABLET PO SCH (14:35)
[2018-11-29 16:00] VITALS: BP 152/66
[2018-11-29] MEDS ORDERED: LACTULOSE 20G/30ML UDC PO SCH (18:00)
[2018-11-29] MEDS ORDERED: LACTULOSE 20G/30ML UDC PO PRN (18:00)
[2018-11-29 20:00] VITALS: BP 139/72
[2018-11-30] VITALS: BP 137/68
[2018-11-30] MEDS: METHYLPREDNISOLONE SOD SUCC 40 MG/ML VIAL IV SCH ×3 (02:44→14:50)
[2018-11-30 04:00] VITALS: BP 148/67
[2018-11-30 06:30] LABS: HEMATOCRIT. 25.1 % (36.0-48.0); HEMOGLOBIN. 8.1 g/dL (12.0-16.0); MEAN CORPUSCULAR HEMOGLOBIN 27.9 pg (28.0-32.0); MEAN CORPUSCULAR VOLUME 86.5 fL (81.0-99.0); MEAN PLATELET VOLUME 9.8 fl (7.4-10.4); PLATELET 151 x1000/uL (130-400); RED BLOOD CELL COUNT 2.91 mill/uL (4.2-5.4); RED CELL DISTRIBUTION WIDTH 14.2 % (11.6-14.6)
[2018-11-30] MEDS: LORAZEPAM 2MG/ML CPJ IV PRN ×3 (06:55→16:13)
[2018-11-30 08:00] VITALS: BP 142/66
[2018-11-30] MEDS: CARVEDILOL 25MG TABLET PO SCH (08:52)
[2018-11-30] MEDS: AMLODIPINE 5MG TABLET PO SCH (08:53)
[2018-11-30] MEDS: ENOXAPARIN 30MG/0.3ML SYR SUBCUT SCH (08:53)
[2018-11-30] MEDS: TRAMADOL 50MG TABLET PO PRN (10:45)
[2018-11-30] MEDS: ONDANSETRON HCL 4MG/2ML INJ IV PRN (10:52)
[2018-11-30 12:00] VITALS: BP 150/60
[2018-11-30] MEDS: LEVOFLOXACIN 250MG TABLET PO SCH (14:50)
[2018-11-30 15:49] LABS: PLATELET ESTIMATE NORMAL
[2018-11-30 16:00] VITALS: BP 153/68
[2018-11-30 18:10] VITALS: BP 153/68
[2018-11-30] MEDS ORDERED: FUROSEMIDE 40MG TABLET PO SCH (21:00)
== END 2018-11-30 19:05 | disposition home or self-care (01) | DRG 682 ==
LOC: ER 13:09 → ENRESERV 11-26 07:24 → 5WST 11-26 08:28
PROVIDERS: ADMIT Internal Medicine Nephrology; ATTEND Internal Medicine Nephrology
DX: N17.9 Acute kidney failure, unspecified (principal); I50.43 Acute on chronic combined systolic (congestive) and diastolic (congestive) heart failure; J44.1 Chronic obstructive pulmonary disease with (acute) exacerbation; I11.0 Hypertensive heart disease with heart failure; E87.6 Hypokalemia; I25.10 Atherosclerotic heart disease of native coronary artery without angina pectoris; I45.9 Conduction disorder, unspecified; M19.90 Unspecified osteoarthritis, unspecified site; K52.9 Noninfective gastroenteritis and colitis, unspecified; S30.0XXA Contusion of lower back and pelvis, initial encounter; X58.XXXA Exposure to other specified factors, initial encounter; E78.5 Hyperlipidemia, unspecified; F41.1 Generalized anxiety disorder; R32 Unspecified urinary incontinence; T50.2X5A Adverse effect of carbonic-anhydrase inhibitors, benzothiadiazides and other diuretics, initial encounter; Z87.891 Personal history of nicotine dependence; Z86.010 Personal history of colon polyps; Z95.2 Presence of prosthetic heart valve; Z95.810 Presence of automatic (implantable) cardiac defibrillator; Z88.6 Allergy status to analgesic agent; Y93.89 Activity, other specified; Y92.89 Other specified places as the place of occurrence of the external cause; Y99.8 Other external cause status
CPT/HCPCS: 36415; 71045; 80048; 80305; 82550; 82553; 83735; 83880; 84100; 84134; 84484; 93005; 93306; 96374; 99285; J1650; J1940; J1956; J2060; J2405; J2920; J7050

== ENCOUNTER 2019-06-26 20:08 | Inpatient (IN) | payer BC, MEDICARE ==
[~2019-06-26] VITALS: Ht 167.6 cm; Wt 68.9 kg
[~2019-06-26 20:08] MED LIST changes: -ASPI-1159 PO; +ASPI-1393 PO; -NIFE30TA83 PO
[2019-06-26] MEDS ORDERED: ASPIRIN 81MG TABLET PO ONE (20:45)
[2019-06-26] MEDS ORDERED: LORAZEPAM 2MG/ML CPJ IV ONE (20:45)
[2019-06-26 21:04] LABS: BASOPHILS % 1.5 % (0.0-2.0); EOSINOPHILS % 4.5 % (0.0-5.0); HEMATOCRIT. 25.3 % (36.0-48.0); HEMOGLOBIN. 8.3 g/dL (12.0-16.0); LYMPHOCYTES % 12.7 % (20.0-50.0); MEAN CORPUSCULAR HEMOGLOBIN 27.3 pg (28.0-32.0); MEAN CORPUSCULAR VOLUME 83.4 fL (81.0-99.0); MEAN PLATELET VOLUME 8.4 fl (7.4-10.4); MONOCYTES % 7.6 % (2.0-8.0); NEUTROPHILS % 73.7 % (40.0-76.0); PLATELET 129 x1000/uL (130-400); RED BLOOD CELL COUNT 3.04 mill/uL (4.2-5.4)
[2019-06-26 21:06] LABS: CHLORIDE 107 mEq/L (98-107)
[2019-06-26 21:10] LABS: D-DIMER 3.12 mg/L FEU (<0.50); INR 1.1; PARTIAL THROMBOPLASTIN TIME 23.3 sec (23.4-31.0); PROTHROMBIN TIME 10.9 sec (9.6-11.0)
[2019-06-26] MEDS ORDERED: TRAMADOL 50MG TABLET PO ONE (22:00)
[2019-06-27] VITALS (7 sets, daily range): BP systolic 134–174; BP diastolic 57–66
[2019-06-27] MEDS ORDERED: HYDRALAZINE 20MG/ML VIAL IV PRN (01:45)
[2019-06-27] MEDS ORDERED: CLONIDINE 0.1MG TABLET PO PRN (01:45)
[2019-06-27] MEDS ORDERED: ONDANSETRON HCL 4MG/2ML INJ IV PRN (01:45)
[2019-06-27] MEDS ORDERED: MAGNESIUM HYDROXIDE 400MG/5ML 30ML UDC PO PRN (01:45)
[2019-06-27] MEDS ORDERED: GUAIFENESIN 200MG/10ML SUGAR FREE UDC PO PRN (01:45)
[2019-06-27] MEDS ORDERED: MAGNESIUM/ALUMINUM HYDROXIDE/SIMETHICONE 30ML UDC PO PRN (01:45)
[2019-06-27] MEDS ORDERED: LACTULOSE 20G/30ML UDC PO PRN (01:45)
[2019-06-27] MEDS ORDERED: DIPHENHYDRAMINE 50MG/ML VIAL IV PRN (01:45)
[2019-06-27] MEDS ORDERED: AMLODIPINE 5MG TABLET PO SCH (04:00)
[2019-06-27] MEDS: LORAZEPAM 0.5MG TABLET PO PRN ×2 (04:06→08:51)
[2019-06-27] MEDS: SODIUM CHLORIDE 0.9% INJ 3ML FLUSH IVF SCH ×2 (06:33→13:31)
[2019-06-27] MEDS ORDERED: FUROSEMIDE 40MG/4ML VIAL IVP SCH (09:00)
[2019-06-27] MEDS ORDERED: ENOXAPARIN 30MG/0.3ML SYR SUBCUT SCH (09:00)
[2019-06-27] MEDS ORDERED: ASPIRIN 81MG EC TABLET PO SCH (09:00)
[2019-06-27] MEDS ORDERED: CARVEDILOL 12.5MG TABLET PO SCH (09:00)
[2019-06-27] MEDS ORDERED: ENAL20TA PO (10:40)
[2019-06-27] MEDS ORDERED: DOCUSATE SODIUM 100MG CAPSULE PO PRN (11:00)
[2019-06-27] MEDS ORDERED: KETOROLAC 30MG/ML VIAL IV PRN (11:00)
[2019-06-27] MEDS ORDERED: ENALAPRIL 5MG TABLET PO SCH (11:00)
[2019-06-27] MEDS: LORAZEPAM 1MG TABLET PO PRN ×2 (11:12→16:24)
[2019-06-27] MEDS: ACETAMINOPHEN 325MG TABLET PO PRN ×2 (11:15→16:36)
[2019-06-27] MEDS ORDERED: CLONIDINE 0.1MG TABLET PO SCH (12:00)
[2019-06-27] MEDS ORDERED: HYDRALAZINE HCL 100MG TABLET PO SCH (14:00)
[2019-06-27] MEDS ORDERED: ATORVASTATIN CALCIUM 40MG TABLET PO SCH (21:00)
[2019-06-28] MEDS ORDERED: DOCUSATE SODIUM 100MG CAPSULE PO SCH (09:00)
== END 2019-06-27 17:57 | disposition home health service (06) | DRG 291 ==
LOC: ER 20:08 → EDBEDREQ 23:40 → 6WST 23:40 → EDBEDREQTM 23:40 → ENRESERV 06-27 01:34
PROVIDERS: ADMIT Internal Medicine; ATTEND Internal Medicine
DX: I13.0 Hypertensive heart and chronic kidney disease with heart failure and stage 1 through stage 4 chronic kidney disease, or unspecified chronic kidney disease (principal); E43 Unspecified severe protein-calorie malnutrition; I50.23 Acute on chronic systolic (congestive) heart failure; N17.9 Acute kidney failure, unspecified; F41.9 Anxiety disorder, unspecified; I42.0 Dilated cardiomyopathy; D64.9 Anemia, unspecified; E78.5 Hyperlipidemia, unspecified; I25.10 Atherosclerotic heart disease of native coronary artery without angina pectoris; N18.9 Chronic kidney disease, unspecified; Z82.49 Family history of ischemic heart disease and other diseases of the circulatory system; Z95.2 Presence of prosthetic heart valve; Z95.810 Presence of automatic (implantable) cardiac defibrillator; Z88.5 Allergy status to narcotic agent
CPT/HCPCS: 36415; 71045; 78582; 83880; 84484; 85379; 93005; 93306; 93970; 96374; 99285; A9558; J2060

== ENCOUNTER 2019-09-22 13:07 | Inpatient (IN) | payer MEDICARE, BC ==
[~2019-09-22] VITALS: Ht 165.1 cm; Wt 68.9 kg
[~2019-09-22 13:07] MED LIST changes: -ASPI-1393 PO; -CLON0.1T PO; +HYDR-4001 PO; +HYDR-4135 MT; -HYDR100T26 PO; +PROT40 MT; +TRAM100T28 MT
[2019-09-22] MEDS ORDERED: LORAZEPAM 2MG/ML CPJ IV ONE (13:45)
[2019-09-22 13:56] LABS: BASOPHILS % 0.9 % (0.0-2.0); EOSINOPHILS % 4.9 % (0.0-5.0); HEMATOCRIT. 30.2 % (36.0-48.0); HEMOGLOBIN. 9.8 g/dL (12.0-16.0); LYMPHOCYTES % 10.5 % (20.0-50.0); MEAN CORPUSCULAR HEMOGLOBIN 27.7 pg (28.0-32.0); MEAN CORPUSCULAR VOLUME 85.9 fL (81.0-99.0); MEAN PLATELET VOLUME 8.2 fl (7.4-10.4); MONOCYTES % 9.6 % (2.0-8.0); NEUTROPHILS % 74.1 % (40.0-76.0); PLATELET 112 x1000/uL (130-400); RED BLOOD CELL COUNT 3.52 mill/uL (4.2-5.4); RED CELL DISTRIBUTION WIDTH 15.9 % (11.6-14.6)
[2019-09-22] MEDS ORDERED: ALBUTEROL (0.083%) 2.5MG/3ML NEB HHN STA (14:27)
[2019-09-22] MEDS ORDERED: IPRATROPIUM BROMIDE (0.02%) 0.5MG/2.5ML NEB HHN STA (14:27)
[2019-09-22 14:37] LABS: *AMPHETAMINES SCREEN URINE NEGATIVE (NEGATIVE); *BARBITURATES SCREEN URINE NEGATIVE (NEGATIVE); *BENZODIAZEPINES SCREEN URINE PRESUMTIVE POSITIVE (NEGATIVE); *COCAINE SCREEN URINE NEGATIVE (NEGATIVE); METHADONE URINE SCREEN NEGATIVE (NEGATIVE); OPIATES URINE SCREEN NEGATIVE (NEGATIVE); PHENCYCLIDINE URINE SCREEN NEGATIVE (NEGATIVE)
[2019-09-22 14:38] LABS: CANNABINOID URINE SCREEN NEGATIVE (NEGATIVE)
[2019-09-22 14:48] LABS: CHLORIDE 108 mEq/L (98-107)
[2019-09-22 14:52] LABS: ETHANOL BLOOD < 10 mg/dL
[2019-09-22] MEDS ORDERED: FUROSEMIDE 20MG/2ML VIAL IVP ONE (15:15)
[2019-09-22] MEDS ORDERED: MAGNESIUM/ALUMINUM HYDROXIDE/SIMETHICONE 30ML UDC PO PRN (15:45)
[2019-09-22] MEDS ORDERED: GUAIFENESIN 200MG/10ML SUGAR FREE UDC PO PRN (15:45)
[2019-09-22] MEDS ORDERED: DIPHENHYDRAMINE 50MG/ML VIAL IV PRN (15:45)
[2019-09-22 16:41] LABS: PHOSPHORUS 4.4 mg/dL (2.5-4.9)
[2019-09-22 18:41] VITALS: BP 125/65
[2019-09-22 20:00] VITALS: BP_SYST 165; BP_SYST 179; BP_DIAS 70; BP_DIAS 84
[2019-09-22] MEDS: ACETAMINOPHEN 325MG TABLET PO PRN (20:35)
[2019-09-22] MEDS: CLONIDINE 0.1MG TABLET PO PRN (20:36)
[2019-09-22] MEDS: FUROSEMIDE 40MG/4ML VIAL IV SCH (20:36)
[2019-09-22] MEDS ORDERED: DEXTROSE 50% WATER 50ML SYRINGE IV PRN (22:30)
[2019-09-23] VITALS: BP 135/73
[2019-09-23] MEDS: TRAMADOL 50MG TABLET PO PRN (00:38)
[2019-09-23] MEDS: LORAZEPAM 1MG TABLET PO PRN ×2 (00:38→14:19)
[2019-09-23 04:00] VITALS: BP 140/70
[2019-09-23] MEDS ORDERED: PIPERACILLIN/TAZOBACTAM 3.375GM/50ML PREMIX IV SCH (06:00)
[2019-09-23] MEDS: ACETAMINOPHEN 325MG TABLET PO PRN (06:30)
[2019-09-23] MEDS: BLOOD SUGAR DIAGNOSTIC STRIP TEST SCH ×4 (06:47→21:30)
[2019-09-23 07:20] LABS: CHLORIDE 110 mEq/L (98-107)
[2019-09-23 07:22] LABS: BASOPHILS % 0.8 % (0.0-2.0); HEMOGLOBIN. 9.4 g/dL (12.0-16.0); LYMPHOCYTES % 13.3 % (20.0-50.0); MEAN CORPUSCULAR HEMOGLOBIN 27.7 pg (28.0-32.0); MEAN CORPUSCULAR VOLUME 85.2 fL (81.0-99.0); MEAN PLATELET VOLUME 8.4 fl (7.4-10.4); MONOCYTES % 10.7 % (2.0-8.0); NEUTROPHILS % 70.2 % (40.0-76.0); PLATELET 99 x1000/uL (130-400); RED BLOOD CELL COUNT 3.41 mill/uL (4.2-5.4); RED CELL DISTRIBUTION WIDTH 15.4 % (11.6-14.6)
[2019-09-23 07:35] LABS: LDL CHOLESTEROL 69 mg/dL (5-100)
[2019-09-23 07:36] LABS: HDL CHOLESTEROL 85 mg/dL (40-59)
[2019-09-23 08:00] VITALS: BP 158/65
[2019-09-23] MEDS: INSULIN LISPRO 100 UNITS/ML SUBCUT SCH ×4 (08:10→21:00)
[2019-09-23] MEDS: FUROSEMIDE 40MG/4ML VIAL IV SCH ×2 (09:15→18:27)
[2019-09-23] MEDS: PIPERACILLIN/TAZOBACTAM 2.25 G in DEXTROSE 5% WATER 50 ML IV SCH ×3 (09:15→21:16)
[2019-09-23] MEDS: AMLODIPINE 5MG TABLET PO SCH (09:16)
[2019-09-23] MEDS: IPRATROPIUM/ALBUTEROL 0.5-3(2.5)MG/3ML NEB HHN PRN (10:34)
[2019-09-23] MEDS: HYDROCODONE/ACETAMINOPHEN 5/325MG TABLET PO PRN (11:06)
[2019-09-23 12:00] VITALS: BP 166/61
[2019-09-23 16:00] VITALS: BP 103/67
[2019-09-23 20:00] VITALS: BP 151/59
[2019-09-23] MEDS ORDERED: EPOETIN ALFA 4000UNITS/ML VIAL SUBCUT NR (21:00)
[2019-09-23] MEDS: ATORVASTATIN CALCIUM 40MG TABLET PO SCH (21:16)
[2019-09-23] MEDS: ZOLPIDEM TARTRATE 5MG TABLET PO PRN (23:05)
[2019-09-23] MEDS: CLONIDINE 0.1MG TABLET PO PRN (23:55)
[2019-09-24] VITALS: BP 189/74
[2019-09-24] MEDS: PIPERACILLIN/TAZOBACTAM 2.25 G in DEXTROSE 5% WATER 50 ML IV SCH ×4 (02:10→20:25)
[2019-09-24 04:00] VITALS: BP 158/74
[2019-09-24] MEDS: LORAZEPAM 1MG TABLET PO PRN ×2 (05:08→18:07)
[2019-09-24 05:40] LABS: BASOPHILS % 0.8 % (0.0-2.0); EOSINOPHILS % 3.8 % (0.0-5.0); HEMATOCRIT. 28.6 % (36.0-48.0); HEMOGLOBIN. 9.5 g/dL (12.0-16.0); MEAN CORPUSCULAR HEMOGLOBIN 27.9 pg (28.0-32.0); MEAN CORPUSCULAR VOLUME 84.5 fL (81.0-99.0); MONOCYTES % 10.7 % (2.0-8.0); NEUTROPHILS % 71.7 % (40.0-76.0); PLATELET 98 x1000/uL (130-400); RED BLOOD CELL COUNT 3.39 mill/uL (4.2-5.4)
[2019-09-24 06:53] LABS: PHOSPHORUS 4.9 mg/dL (2.5-4.9)
[2019-09-24] MEDS: BLOOD SUGAR DIAGNOSTIC STRIP TEST SCH ×4 (07:18→20:27)
[2019-09-24 08:00] VITALS: BP 106/66
[2019-09-24] MEDS: INSULIN LISPRO 100 UNITS/ML SUBCUT SCH ×4 (08:10→20:27)
[2019-09-24] MEDS: AMLODIPINE 5MG TABLET PO SCH (08:40)
[2019-09-24] MEDS: FUROSEMIDE 40MG/4ML VIAL IV SCH (08:41)
[2019-09-24] MEDS ORDERED: FUROSEMIDE 40MG/4ML VIAL IV SCH (11:45)
[2019-09-24] MEDS: IPRATROPIUM/ALBUTEROL 0.5-3(2.5)MG/3ML NEB HHN PRN (11:49)
[2019-09-24 12:00] VITALS: BP 155/70
[2019-09-24 12:15] LABS: SODIUM URINE RANDOM 46 mEq/L
[2019-09-24 12:16] LABS: CLARITY URINE CLEAR (CLEAR); COLOR URINE YELLOW (YELLOW); KETONES URINE NEGATIVE (NEGATIVE); LEUKOCYTE ESTERASE URINE NEGATIVE (NEGATIVE); NITRITE URINE NEGATIVE (NEGATIVE); OCCULT BLOOD URINE NEGATIVE (NEGATIVE); PROTEIN URINE 4+ (NEGATIVE); SPECIFIC GRAVITY URINE 1.017 (1.005-1.030); UROBILINOGEN URINE 0.2 E.U./dL (0.2-1.0)
[2019-09-24 12:19] LABS: UREA NITROGEN URINE RANDOM 375 mg/dL
[2019-09-24] MEDS: TRAMADOL 50MG TABLET PO PRN (14:29)
[2019-09-24 16:00] VITALS: BP 188/81
[2019-09-24] MEDS: ACETAMINOPHEN 325MG TABLET PO PRN (16:23)
[2019-09-24] MEDS: ONDANSETRON HCL 4MG/2ML INJ IV PRN (16:24)
[2019-09-24] MEDS: CLONIDINE 0.1MG TABLET PO PRN ×2 (18:07→23:37)
[2019-09-24 20:00] VITALS: BP 141/63
[2019-09-24] MEDS: ATORVASTATIN CALCIUM 40MG TABLET PO SCH (20:26)
[2019-09-24] MEDS: ZOLPIDEM TARTRATE 5MG TABLET PO PRN (23:37)
[2019-09-24] MEDS: HYDROCODONE/ACETAMINOPHEN 5/325MG TABLET PO PRN (23:38)
[2019-09-25] VITALS: BP_SYST 18; BP_SYST 186; BP_DIAS 81
[2019-09-25] MEDS: PIPERACILLIN/TAZOBACTAM 2.25 G in DEXTROSE 5% WATER 50 ML IV SCH ×4 (01:47→20:26)
[2019-09-25] MEDS: ONDANSETRON HCL 4MG/2ML INJ IV PRN (03:22)
[2019-09-25 04:00] VITALS: BP 146/50
[2019-09-25 07:05] LABS: PHOSPHORUS 5.2 mg/dL (2.5-4.9)
[2019-09-25 07:14] LABS: BASOPHILS % 1.1 % (0.0-2.0); EOSINOPHILS % 5.5 % (0.0-5.0); HEMATOCRIT. 25.6 % (36.0-48.0); HEMOGLOBIN. 8.5 g/dL (12.0-16.0); LYMPHOCYTES % 19.7 % (20.0-50.0); MEAN CORPUSCULAR HEMOGLOBIN 28.2 pg (28.0-32.0); MEAN PLATELET VOLUME 8.4 fl (7.4-10.4); MONOCYTES % 12.5 % (2.0-8.0); NEUTROPHILS % 61.2 % (40.0-76.0); PLATELET 92 x1000/uL (130-400); RED BLOOD CELL COUNT 3.02 mill/uL (4.2-5.4); RED CELL DISTRIBUTION WIDTH 15.1 % (11.6-14.6)
[2019-09-25] MEDS: BLOOD SUGAR DIAGNOSTIC STRIP TEST SCH ×4 (07:40→20:50)
[2019-09-25 08:00] VITALS: BP 170/83
[2019-09-25] MEDS: INSULIN LISPRO 100 UNITS/ML SUBCUT SCH ×4 (08:10→20:50)
[2019-09-25] MEDS ORDERED: FUROSEMIDE 40MG/4ML VIAL IV SCH (09:00)
[2019-09-25] MEDS: AMLODIPINE 5MG TABLET PO SCH ×2 (09:15→20:39)
[2019-09-25] MEDS: LORAZEPAM 1MG TABLET PO PRN (10:02)
[2019-09-25] MEDS: ACETAMINOPHEN 325MG TABLET PO PRN (10:18)
[2019-09-25] MEDS: IPRATROPIUM/ALBUTEROL 0.5-3(2.5)MG/3ML NEB HHN PRN (10:40)
[2019-09-25 12:00] VITALS: BP 140/57
[2019-09-25] MEDS ORDERED: CLONIDINE 0.1MG TABLET PO SCH (12:00)
[2019-09-25 15:57] VITALS: BP 178/77
[2019-09-25] MEDS: TRAMADOL 50MG TABLET PO PRN (16:15)
[2019-09-25 20:00] VITALS: BP 159/75
[2019-09-25] MEDS: HYDROCODONE/ACETAMINOPHEN 5/325MG TABLET PO PRN (20:40)
[2019-09-25] MEDS: ATORVASTATIN CALCIUM 40MG TABLET PO SCH (20:40)
[2019-09-25] MEDS: ZOLPIDEM TARTRATE 5MG TABLET PO PRN (20:40)
[2019-09-26] VITALS: BP 156/68
[2019-09-26] MEDS: LORAZEPAM 1MG TABLET PO PRN ×3 (01:50→19:59)
[2019-09-26 04:00] VITALS: BP 156/69
[2019-09-26] MEDS: BLOOD SUGAR DIAGNOSTIC STRIP TEST SCH ×4 (05:58→20:05)
[2019-09-26] MEDS: PIPERACILLIN/TAZOBACTAM 2.25 G in DEXTROSE 5% WATER 50 ML IV SCH ×4 (06:03→19:59)
[2019-09-26 07:20] LABS: EOSINOPHILS % 5.8 % (0.0-5.0); HEMATOCRIT. 27.1 % (36.0-48.0); HEMOGLOBIN. 8.9 g/dL (12.0-16.0); LYMPHOCYTES % 17.3 % (20.0-50.0); MEAN CORPUSCULAR HEMOGLOBIN 27.7 pg (28.0-32.0); MEAN CORPUSCULAR VOLUME 84.6 fL (81.0-99.0); MEAN PLATELET VOLUME 8.1 fl (7.4-10.4); MONOCYTES % 10.5 % (2.0-8.0); NEUTROPHILS % 65.4 % (40.0-76.0); PLATELET 104 x1000/uL (130-400); RED BLOOD CELL COUNT 3.21 mill/uL (4.2-5.4); RED CELL DISTRIBUTION WIDTH 15.1 % (11.6-14.6)
[2019-09-26 07:45] LABS: PHOSPHORUS 5.5 mg/dL (2.5-4.9)
[2019-09-26 08:00] VITALS: BP 155/69
[2019-09-26] MEDS: INSULIN LISPRO 100 UNITS/ML SUBCUT SCH ×4 (08:10→20:05)
[2019-09-26] MEDS: AMLODIPINE 5MG TABLET PO SCH ×2 (08:50→19:59)
[2019-09-26] MEDS: FUROSEMIDE 40MG/4ML VIAL IV SCH (08:50)
[2019-09-26] MEDS: HYDROCODONE/ACETAMINOPHEN 5/325MG TABLET PO PRN ×2 (09:05→17:36)
[2019-09-26 09:06] LABS: COMPLEMENT C3 101 mg/dL (82-167); IMMUNOGLOBULIN A 161 mg/dL (64-422); IMMUNOGLOBULIN G 897 mg/dL (700-1600); IMMUNOGLOBULIN M 55 mg/dL (26-217)
[2019-09-26] MEDS: IPRATROPIUM/ALBUTEROL 0.5-3(2.5)MG/3ML NEB HHN PRN ×2 (09:55→18:06)
[2019-09-26 12:00] VITALS: BP 155/70
[2019-09-26] MEDS: DOCUSATE SODIUM 100MG CAPSULE PO PRN (13:39)
[2019-09-26 16:00] VITALS: BP 172/74
[2019-09-26] MEDS: CLONIDINE 0.1MG TABLET PO PRN (17:38)
[2019-09-26] MEDS: ATORVASTATIN CALCIUM 40MG TABLET PO SCH (19:59)
[2019-09-26 20:00] VITALS: BP 164/79
[2019-09-27 00:05] VITALS: BP 140/75
[2019-09-27] MEDS: PIPERACILLIN/TAZOBACTAM 2.25 G in DEXTROSE 5% WATER 50 ML IV SCH ×2 (01:40→08:06)
[2019-09-27] MEDS: ZOLPIDEM TARTRATE 5MG TABLET PO PRN (01:49)
[2019-09-27] MEDS: HYDROCODONE/ACETAMINOPHEN 5/325MG TABLET PO PRN (01:50)
[2019-09-27 04:00] VITALS: BP 153/62
[2019-09-27] MEDS: BLOOD SUGAR DIAGNOSTIC STRIP TEST SCH ×4 (05:34→20:49)
[2019-09-27 05:57] LABS: PHOSPHORUS 5.6 mg/dL (2.5-4.9)
[2019-09-27 06:15] LABS: EOSINOPHILS % 5.3 % (0.0-5.0); HEMATOCRIT. 26.9 % (36.0-48.0); HEMOGLOBIN. 8.9 g/dL (12.0-16.0); LYMPHOCYTES % 16.3 % (20.0-50.0); MEAN CORPUSCULAR HEMOGLOBIN 27.8 pg (28.0-32.0); MEAN CORPUSCULAR VOLUME 84.3 fL (81.0-99.0); MEAN PLATELET VOLUME 8.1 fl (7.4-10.4); MONOCYTES % 10.3 % (2.0-8.0); NEUTROPHILS % 67.1 % (40.0-76.0); PLATELET 112 x1000/uL (130-400); RED BLOOD CELL COUNT 3.19 mill/uL (4.2-5.4); RED CELL DISTRIBUTION WIDTH 15.2 % (11.6-14.6)
[2019-09-27 08:00] VITALS: BP 167/75
[2019-09-27] MEDS: AMLODIPINE 5MG TABLET PO SCH ×2 (08:07→20:45)
[2019-09-27] MEDS: FUROSEMIDE 40MG/4ML VIAL IV SCH (08:07)
[2019-09-27] MEDS: INSULIN LISPRO 100 UNITS/ML SUBCUT SCH ×4 (08:10→20:49)
[2019-09-27] MEDS: IPRATROPIUM/ALBUTEROL 0.5-3(2.5)MG/3ML NEB HHN PRN (08:12)
[2019-09-27] MEDS: TRAMADOL 50MG TABLET PO PRN (08:13)
[2019-09-27] MEDS: LORAZEPAM 1MG TABLET PO PRN ×2 (08:50→19:47)
[2019-09-27] MEDS ORDERED: BISACODYL 5MG TABLET PO SCH (11:15)
[2019-09-27 12:00] VITALS: BP 160/72
[2019-09-27] MEDS: CEFTRIAXONE 2 G in DEXTROSE 5% WATER 50 ML IV SCH (14:26)
[2019-09-27 16:00] VITALS: BP 163/84
[2019-09-27] MEDS: DOCUSATE SODIUM 100MG CAPSULE PO PRN (17:53)
[2019-09-27 20:00] VITALS: BP 184/85
[2019-09-27] MEDS: CLONIDINE 0.1MG TABLET PO PRN (20:45)
[2019-09-27] MEDS: ATORVASTATIN CALCIUM 40MG TABLET PO SCH (20:45)
[2019-09-27] MEDS: ACETAMINOPHEN 325MG TABLET PO PRN (21:07)
[2019-09-27] MEDS ORDERED: ZOLPIDEM TARTRATE 5MG TABLET PO PRN (23:15)
[2019-09-28] VITALS: BP 149/70
[2019-09-28 04:00] VITALS: BP 176/74
[2019-09-28] MEDS: CLONIDINE 0.1MG TABLET PO PRN (06:16)
[2019-09-28] MEDS: ACETAMINOPHEN 325MG TABLET PO PRN ×2 (06:18→14:47)
[2019-09-28] MEDS: BLOOD SUGAR DIAGNOSTIC STRIP TEST SCH ×2 (06:24→12:40)
[2019-09-28] MEDS: INSULIN LISPRO 100 UNITS/ML SUBCUT SCH ×2 (06:24→13:10)
[2019-09-28] MEDS: IPRATROPIUM/ALBUTEROL 0.5-3(2.5)MG/3ML NEB HHN PRN ×2 (06:29→09:27)
[2019-09-28 06:51] LABS: PHOSPHORUS 5.4 mg/dL (2.5-4.9)
[2019-09-28 06:52] LABS: BASOPHILS % 0.9 % (0.0-2.0); EOSINOPHILS % 4.9 % (0.0-5.0); HEMATOCRIT. 28.6 % (36.0-48.0); HEMOGLOBIN. 9.5 g/dL (12.0-16.0); LYMPHOCYTES % 11.7 % (20.0-50.0); MEAN CORPUSCULAR HEMOGLOBIN 28.2 pg (28.0-32.0); MEAN CORPUSCULAR VOLUME 84.9 fL (81.0-99.0); MONOCYTES % 10.4 % (2.0-8.0); NEUTROPHILS % 72.1 % (40.0-76.0); PLATELET 118 x1000/uL (130-400); RED BLOOD CELL COUNT 3.37 mill/uL (4.2-5.4); RED CELL DISTRIBUTION WIDTH 15.1 % (11.6-14.6)
[2019-09-28 08:00] VITALS: BP_SYST 133; BP_SYST 161; BP_DIAS 64; BP_DIAS 75
[2019-09-28] MEDS ORDERED: LORAZEPAM 1MG TABLET PO PRN (09:00)
[2019-09-28] MEDS ORDERED: FUROSEMIDE 40MG/4ML VIAL IVP SCH (09:00)
[2019-09-28] MEDS ORDERED: FUROSEMIDE 40MG TABLET PO SCH (09:00)
[2019-09-28] MEDS: DOCUSATE SODIUM 100MG CAPSULE PO PRN (09:09)
[2019-09-28] MEDS: AMLODIPINE 5MG TABLET PO SCH (09:09)
[2019-09-28] MEDS: CEFTRIAXONE 2 G in DEXTROSE 5% WATER 50 ML IV SCH (09:54)
[2019-09-28] MEDS ORDERED: FURO40TA5 PO (11:29)
[2019-09-28] MEDS ORDERED: CEPH-569 MT (11:29)
[2019-09-28] MEDS ORDERED: AMLO5TAB88 PO (11:29)
[2019-09-28] MEDS ORDERED: LORA2TAB95 MT (11:29)
[2019-09-28 12:00] VITALS: BP 133/64
== END 2019-09-28 16:45 | disposition home or self-care (01) | DRG 871 ==
LOC: ER 13:13 → 7WST 15:06 → EDBEDREQ 15:08 → EDBEDREQTM 15:08 → ENRESERV 16:27
PROVIDERS: ADMIT Internal Medicine; ATTEND Internal Medicine
PROC: 4B02XTZ Measurement of Cardiac Defibrillator, External Approach (ICD-10-PCS; principal; 2019-09-23)
DX: A41.50 Gram-negative sepsis, unspecified (principal); E43 Unspecified severe protein-calorie malnutrition; I50.23 Acute on chronic systolic (congestive) heart failure; J96.91 Respiratory failure, unspecified with hypoxia; I13.0 Hypertensive heart and chronic kidney disease with heart failure and stage 1 through stage 4 chronic kidney disease, or unspecified chronic kidney disease; N18.4 Chronic kidney disease, stage 4 (severe); I42.0 Dilated cardiomyopathy; N17.9 Acute kidney failure, unspecified; D63.8 Anemia in other chronic diseases classified elsewhere; I25.10 Atherosclerotic heart disease of native coronary artery without angina pectoris; D69.6 Thrombocytopenia, unspecified; E78.5 Hyperlipidemia, unspecified; F41.9 Anxiety disorder, unspecified; G47.00 Insomnia, unspecified; M81.0 Age-related osteoporosis without current pathological fracture; Z79.899 Other long term (current) drug therapy; Z82.3 Family history of stroke; Z82.49 Family history of ischemic heart disease and other diseases of the circulatory system; Z90.710 Acquired absence of both cervix and uterus; Z95.2 Presence of prosthetic heart valve; Z95.810 Presence of automatic (implantable) cardiac defibrillator; Z88.8 Allergy status to other drugs, medicaments and biological substances; Z87.440 Personal history of urinary (tract) infections; Z87.19 Personal history of other diseases of the digestive system; Z91.041 Radiographic dye allergy status; Z68.25 Body mass index [BMI] 25.0-25.9, adult
CPT/HCPCS: 36415; 71045; 76770; 80048; 80061; 80305; 80320; 81003; 82570; 82784; 82962; 83036; 83735; 83880; 84100; 84156; 84300; 84443; 84484; 84540; 86160; 86334; 87077; 87186; 93005; 93970; 94640; 96374; 96375; 97162; 99291; A6261; J0696; J0885; J1200; J1815; J1940; J2060; J2405; J2543; J7060; J7611; J7620; G0480

== ENCOUNTER 2019-11-24 10:08 | Emergency (ER) | payer MEDICARE, BC ==
[~2019-11-24] VITALS: Ht 167.6 cm; Wt 78.0 kg
[~2019-11-24 10:08] MED LIST changes: -AMLO10TA80 PO; +AMLO5TAB88 PO; -ATIVAN PO; -DIFL5DRO LEFTEYE; -HYDR-4001 PO; -HYDR-4135 MT; +LORA2TAB95 MT; +PRED5DRO22 LEFTEYE; -TRAM100T28 MT; +TRAM100T28 PO
[2019-11-24] MEDS ORDERED: ACETAMINOPHEN 325MG TABLET PO ONE (14:00)
[2019-11-24 14:35] VITALS: BP 162/71
== END 2019-11-24 15:53 | disposition home or self-care (01) ==
LOC: ER 10:32
DX: T42.4X1A Poisoning by benzodiazepines, accidental (unintentional), initial encounter (principal); I11.0 Hypertensive heart disease with heart failure; I50.9 Heart failure, unspecified; Z88.9 Allergy status to unspecified drugs, medicaments and biological substances; Z88.5 Allergy status to narcotic agent; Z88.6 Allergy status to analgesic agent; Z88.1 Allergy status to other antibiotic agents; Z79.899 Other long term (current) drug therapy; Z95.0 Presence of cardiac pacemaker; Y92.89 Other specified places as the place of occurrence of the external cause
CPT/HCPCS: 93005; 99283